=== PATIENT | female | born 1990 | race Caucasian/White ===

== ENCOUNTER 2016-11-21 07:58 | Day surgery (SDC) | payer OTHER ==
--- NOTE | 2016-11-17 09:07 | HP ---
PREOPERATIVE HISTORY AND PHYSICAL: DATE OF SURGERY/ADMISSION: 11/21/16 PROCEDURE: Right wrist carpal tunnel release. HISTORY OF PRESENT ILLNESS: This is a 26-year-old female who complains of numbness and tingling in both of her hands for approximately 2-1/2 months. She believes it involves the whole hand, but could not be sure whether her pinky is included or not. She recently had an EMG nerve conduction study performed on the right, which showed moderate carpal tunnel syndrome. The patient denies injury to either wrist. She gets increased pain with writing and moving her wrists, and relief of symptoms with hot packs. Symptoms are quite persistent and do awaken her at night. She is currently an outpatient for drug rehabilitation. She was recently a resident at [facility] for drug addiction and is currently on Suboxone. She has a history of narcotic drug abuse. The patient is interested in pursuing surgical intervention for her right carpal tunnel syndrome and has consented to proceed. PAST MEDICAL HISTORY: 1. History of substance abuse. 2. Depression/anxiety. PAST SURGICAL HISTORY: x2. CURRENT MEDICATIONS: 1. Meloxicam 15 mg daily. 2. Paxil 40 mg daily. 3. Suboxone 8-2 mg daily. 4. Wellbutrin SR 100 mg daily. ALLERGIES: AMOXICILLIN SODIUM causes hives. FAMILY MEDICAL HISTORY: Significant for diabetes, hypertension, and thyroid cancer. SOCIAL HISTORY: The patient is not currently employed. She is in outpatient drug rehabilitation treatment. She is a smoker, currently smoking less than half a pack a day and has done so since age 12. She denies current illicit drug use. Reports 133 days of sobriety. Denies alcohol use currently. REVIEW OF SYSTEMS: General: Negative for fevers, chills, or night sweats. No known anesthesia problems. HEENT: Negative for headache, lightheadedness, or syncopal episodes. Integumentary: Negative for abrasions, lesions, or open wounds. Cardiothoracic: Negative for hypertension, chest pain, palpitations, or edema. Pulmonary: Negative for shortness of breath with exertion, chronic cough or COPD. GI: Negative for nausea, vomiting, diarrhea, constipation, or GERD. : Negative for nocturia, urinary frequency, urgency, history of UTIs, or kidney problems. Musculoskeletal: Positive for current complaint. Negative for chronic or intermittent back pain or history of fractures. Neurological: Negative for history of seizure, stroke, or epilepsy. Positive for depression/anxiety. Endocrine: Negative for diabetes or thyroid issues. Hematologic: Negative for easy bruising, anemia, excessive bleeding, or history of DVT. Infectious Disease: Negative for history of MRSA, hepatitis C, or HIV. PHYSICAL EXAMINATION GENERAL: Well-developed, well-nourished 26-year-old female, in no acute distress. VITAL SIGNS: Height 5 feet, weight 130 pounds. Blood pressure 102/64, pulse rate 81. HEENT: Normocephalic, atraumatic. Pupils are equal, round, and reactive to light and accommodation. Extraocular movements are intact. Throat is clear. NECK: Supple. No palpable lymph nodes. PULMONARY: Lungs are clear to auscultation bilaterally. No wheezes, rales, or rhonchi. CARDIOTHORACIC: Regular rate and rhythm. S1, S2. No murmurs, rubs or gallops. No edema. ABDOMEN: Positive bowel sounds, soft, and nontender. NEUROLOGICAL: Alert and oriented x3. Cranial nerves II through XII are intact. Sensation is intact to light touch. PERIPHERAL VASCULAR: 2+ radial and ulnar pulses. Negative Julius test. MUSCULOSKELETAL: On exam of bilateral upper extremities, there is no visible atrophy at the thenar eminence nor at the interosseous musculature of bilateral hands. There is no tenderness to palpation at the wrist or at the elbows. She has full range of motion at the elbows, wrists and fingers, slight decrease in strength with thumb abduction, right is worse than left. She has a negative Tinel's sign at the wrist bilaterally as well as at the elbows bilaterally. Negative Phalen's test bilaterally. She has good strength with finger abduction and adduction, and sensation is intact throughout to light touch, both hands. IMAGING STUDIES: EMG nerve conduction study shows electrodiagnostic evidence of moderate carpal tunnel syndrome. IMPRESSION: Right carpal tunnel syndrome. PLAN: The patient is scheduled to undergo a right wrist carpal tunnel release with Dr. Whaley on 11/21/16. She will return to the office 10 to 14 days postop for followup and suture removal. The patient has a history of narcotic drug abuse and is currently being treated with Suboxone. We will have her continue with the Suboxone and we will have her use meloxicam and some acetaminophen for postoperative pain control. SYEDA BAILEY [id number]/[facility] #: [id number] [facility]PT[facility] HOSPITALZaria
[~2016-11-21 07:58] MED LIST: Buffered Lidocaine 0.9% SYRIN* 5 ML/SYR SYRINGE INTRADERM ONE
[2016-11-21] MEDS ORDERED: Propofol* 10 MG/ML 20 ML BTL IV PUSH ONE (08:58)
[2016-11-21] MEDS ORDERED: Lidocaine 2% PF * 5 ML VIAL ONE (08:58)
[2016-11-21] MEDS ORDERED: fentaNYL* 50 MCG/ML 2 ML VIAL (100 MCG VIAL) ONE (08:58)
[2016-11-21] MEDS ORDERED: KETAMINE HCL* 50 MG/ML 10 ML VIAL ONE (09:27)
[2016-11-21] MEDS ORDERED: Midazolam* 1 MG/ML 5 ML VIAL (5 MG) ONE (09:27)
[2016-11-21 11:55] VITALS: BP 109/72
--- NOTE | 2016-11-22 06:32 | OP ---
DATE OF OPERATION: 11/21/16 [facility] DATE OF : 88 SURGEON: Miguelina Whaley MD LEGGER PRESS OPERATOR: SYEDA Oh ANESTHESIOLOGIST: Harry Glez MD ANESTHESIA: Local MAC. PRE-OP DIAGNOSIS: Right carpal tunnel syndrome. POST-OP DIAGNOSIS: Right carpal tunnel syndrome. OPERATIVE PROCEDURE: Right carpal tunnel release. ESTIMATED BLOOD LOSS: Zero. TOURNIQUET TIME: 5 minutes. INDICATION FOR PROCEDURE: Willow is a 26-year-old female with numbness and tingling in the median nerve distribution of her right hand. She presents for right carpal tunnel release. DESCRIPTION OF PROCEDURE: The patient was brought to the operating room, was given a sedation anesthetic and a local infiltration of 10 cc of 1% plain lidocaine in the palm of her right hand. The skin of her right hand and forearm was prepped and draped in the usual sterile fashion. The hand and forearm were exsanguinated and the tourniquet elevated to 250 mmHg. A longitudinal incision was made in the palm in line with the ring finger, dissected through the subcutaneous tissue down to the transverse carpal ligament. The ligament was divided sharply with the knife and then more proximally with scissors. The nerve was dissected free from the surrounding tissue and there was an area of moderate compression at the mid portion of the ligament. The wound was irrigated and the skin edges were reapproximated with 4 -0 nylon suture. The wound was dressed with Xeroform, 4x4, Webril, and an Isauro wrap. The patient tolerated the procedure well and was brought to the recovery room in good condition. [id number]/[facility] #: [id number] MTDD
== END 2016-11-21 11:04 | disposition home or self-care (01) ==
LOC: OREAST 07:58
PROVIDERS: ATTEND Orthopaedic Surgery
DX: G56.01 Carpal tunnel syndrome, right upper limb (principal); F17.210 Nicotine dependence, cigarettes, uncomplicated; F11.21 Opioid dependence, in remission
CPT/HCPCS: J2250; J2704; J3010

== ENCOUNTER 2017-04-22 16:29 | Emergency (ER) | payer OTHER ==
[2017-04-22 17:14] VITALS: BP 136/79
--- NOTE | 2017-04-22 17:24 | UC ---
Skin Complaint HPI - HPI Summary HPI Summary: 26 year old female presents with severe cellulitis on her left arm. - History of Current Complaint Chief Complaint: UCSkin Time Seen by Provider: 04/22/17 17:19 Stated Complaint: LEFT ARM COMPLAINT Hx Obtained From: Patient Hx Last Menstrual Period: IRREGULAR - 4 MONTHS AGO Onset/Duration: Sudden Onset Skin Exposure Onset/Duration: Days Ago Onset Severity: Moderate Current Severity: Moderate - Allergy/Home Medications Allergies/Adverse Reactions: Allergies Allergy/AdvReac Type Severity Reaction Status Date / Time cillins Allergy Severe Hives Uncoded 04/22/17 17:14 mycins Allergy Severe Hives Uncoded 04/22/17 17:14 Home Medications: Home Medications Asenapine Maleate [Saphris] 5 mg SL 04/22/17 [History] Review of Systems Constitutional: Negative Skin: Other - left arm cellulitis Eyes: Negative ENT: Negative Respiratory: Negative Cardiovascular: Negative Gastrointestinal: Negative Genitourinary: Negative Motor: Negative Neurovascular: Negative Musculoskeletal: Negative Neurological: Negative Psychological: Negative All Other Systems Reviewed And Are Negative: Yes PMH/Surg Hx/FS Hx/Imm Hx Previously Healthy: Yes - Surgical History Surgical History: Yes Surgery Procedure, Year, and Place: x2 - Social History Alcohol Use: None Substance Use Type: None Smoking Status (MU): Light Every Day Tobacco Smoker Amount Used/How Often: smoked for 15 years - Immunization History Most Recent Influenza Vaccination: CURRENT FOR Physical Exam Triage Information Reviewed: Yes Vital Signs: Initial Vital Signs Temp 36.6 C 04/22/17 17:07 Pulse 78 04/22/17 17:07 Resp 18 04/22/17 17:07 BP 136/79 04/22/17 17:07 Pulse Ox 100 04/22/17 17:07 Vital Signs Reviewed: Yes Eye Exam: Normal ENT Exam: Normal Dental Exam: Normal Neck exam: Normal Neck: Positive: 1 Respiratory Exam: Normal Cardiovascular Exam: Normal Abdominal Exam: Normal Musculoskeletal Exam: Normal Neurological Exam: Normal Psychological Exam: Normal Skin: Positive: Other - left arm cellulitis Course/Dx - Diagnoses Provider Diagnoses: left arm cellulitis Discharge - Discharge Plan Condition: Stable Disposition: OTHER Discharge Disposition Comment: patient suggested to go to the er for worsening left arm cellulitis Patient Education Materials: Abscess (ED), Arm Pain (ED) Referrals: Carina Perez NP [Primary Care Provider] -
== END 2017-04-22 17:37 ==
LOC: UCCORT 16:29
DX: L03.114 Cellulitis of left upper limb (principal); Z88.1 Allergy status to other antibiotic agents; Z88.0 Allergy status to penicillin; F17.210 Nicotine dependence, cigarettes, uncomplicated
CPT/HCPCS: 99212; G0463

== ENCOUNTER 2018-04-03 02:46 | Emergency (ER) | payer OTHER ==
[2018-04-03] MEDS ORDERED: Nicotine Inhaler* 10 MG AMP INH PRN (02:48)
[2018-04-03 03:47] LABS: ABS Basophils 0.1 10^3/ul (0-0.2); ABS Eosinophils 0.1 10^3/ul (0-0.6); ABS Monocytes 0.8 10^3/ul (0-0.8); ABS Neutrophils 6.4 10^3/ul (1.5-7.7); ABS Nucleated RBC 0 10^3/ul; Eosinophil % 1.2 % (0-6); Hematocrit 40 % (35-47); Hemoglobin 13.1 g/dl (12.0-16.0); Mean Corpuscular HGB Conc 33 g/dl (31-36); Mean Corpuscular Hemoglobin 31 pg (27-31); Mean Corpuscular Volume 95 fL (80-97); Mean Platelet Volume 6.7 fL (7.4-10.4); Nucleated Red Blood Cells % 0.1; Platelet Count 338 10^3/ul (150-450); Red Blood Count 4.21 10^6/ul (4.00-5.40); Red Cell Distribution Width 15 % (10.5-15); White Blood Count 12.6 10^3/ul (3.5-10.8)
[2018-04-03] MEDS ORDERED: Mouth Piece, Nicotine* 1 EACH CARTRIDGE INH ONE (04:00)
[2018-04-03 04:05] LABS: EGFR Non-African American 121.4 (>60)
--- NOTE | 2018-04-03 04:06 | ED ---
Substance Abuse/Use - HPI Summary HPI Summary: This patient is a 27 year old F BIBA to [facility] with a chief complaint of unresponsiveness since earlier this evening. EMS reports that the patient was found cutting herself in a [place] bathroom after she had locked herself inside. 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 The patient admits to using speed and meth. The patient rates the pain 0/10 in severity. Symptoms aggravated by nothing. Symptoms alleviated by nothing. Patient denies taking heroin. Patient is alert only to painful stimuli. - History Of Current Complaint Chief Complaint: EDSubstanceAbuse Stated Complaint: UNRESPONSIVE Time Seen by Provider: 04/03/18 02:58 Hx Obtained From: Patient, EMS Hx Last Menstrual Period: IRREGULAR - 4 MONTHS AGO Onset/Duration of Drug/ETOH Abuse: Hours Ingestion History: Type/Name Of Drug - speed, meth Timing Of Abuse: Intermittent Severity Initially: Moderate Severity Currently: Moderate Character: Lethargic Aggravating Factor(s): Nothing Alleviating Factor(s): Nothing Associated Signs And Symptoms: Hostile, Social Isolation Related Hx: Possible Multi Drug Ingestion - Allergies/Home Medications Allergies/Adverse Reactions: Allergies Allergy/AdvReac Type Severity Reaction Status Date / Time cillins Allergy Severe Hives Uncoded 04/22/17 17:14 mycins Allergy Severe Hives Uncoded 04/22/17 17:14 Home Medications: Home Medications ALPRAZolam [Alprazolam] 1 mg PO TID PRN 04/03/18 [History Confirmed 04/03/18] Buprenorp/Nalox 8-2 MG FILM [Suboxone 8 mg-2 mg Sl Film] 1 film SL BID 04/03/18 [History Confirmed 04/03/18] Methylphenidate TAB* [Ritalin TAB*] 10 mg PO BID 04/03/18 [History Confirmed 08/16] Ropinirole TAB* [Requip TAB*] 0.5 mg PO TID 04/03/18 [History Confirmed 04/03/18 ] Venlafaxine EXT RELEASE CAP* [Effexor Xr CAP*] 75 mg PO DAILY 04/03/18 [History Confirmed 04/03/18] diazePAM [Diazepam] 5 mg PO DAILY 04/03/18 [History Confirmed 04/03/18] PMH/Surg Hx/FS Hx/Imm Hx Cardiovascular History: Reports: Hx Hypertension Respiratory History: Reports: Other Respiratory Problems/Disorders - insomnia Sensory History: Reports: Hx Contacts or Glasses - glasses Denies: Hx Hearing Aid Opthamlomology History: Reports: Hx Contacts or Glasses - glasses Psychiatric History: Reports: Hx Anxiety, Hx Depression - Cancer History Hx Chemotherapy: No - Surgical History Surgery Procedure, Year, and Place: x2 Hx Anesthesia Reactions: No Infectious Disease History: No Infectious Disease History: Denies: History Other Infectious Disease, Traveled Outside the [place] in Last 30 Days - Family History Known Family History: Negative: Seizure Disorder - Social History Alcohol Use: None Substance Use Type: Reports: Other Substance Use Comment - Amount & Last Used: meth, speed and crack Smoking Status (MU): Light Every Day Tobacco Smoker Amount Used/How Often: smoked for 15 years Review of Systems Positive: Fatigue. Negative: Fever Negative: Epistaxis Negative: Cough Negative: Vomiting All Other Systems Reviewed And Are Negative: Yes Physical Exam - Summary Physical Exam Summary: GENERAL: Patient is a well-developed and nourished F who is lying comfortable in the stretcher. Patient is not in any acute respiratory distress. HEAD AND FACE: Normocephalic EYES: PERRLA, EOMI x 2. EARS: Hearing grossly intact. MOUTH: Oropharynx within normal limits. NECK: Supple, trachea is midline, no adenopathy, no JVD, no carotid bruit. CHEST: Symmetric, no tenderness at palpation LUNGS: Clear to auscultation bilaterally. No wheezing or crackles. CVS: Regular rate and rhythm, S1 and S2 present, no murmurs or gallops appreciated. ABDOMEN: Soft, non-tender. Bowel sounds are normal. No abdominal abnormal pulsations. EXTREMITIES: Full ROM in all major joints, no edema, no cyanosis or clubbing. NEURO: Alert only to painful stimuli. No acute neurological deficits. Speech is normal and follows commands. SKIN: Dry and warm Triage Information Reviewed: Yes Vital Signs On Initial Exam: Initial Vitals Pulse Pulse Ox 97 100 04/03/18 02:54 04/03/18 02:54 Vital Signs Reviewed: Yes Diagnostics - Vital Signs Vital Signs Temp Pulse Resp BP Pulse Ox 04/03/18 03:02 98.6 F 82 16 113/71 95 04/03/18 03:00 78 18 97 04/03/18 02:57 78 21 113/71 97 04/03/18 02:54 97 100 - Laboratory Lab Results: Lab Results 04/03/18 Range/Units 03:36 WBC 12.6 H (3.5-10.8) 10^3/ul RBC 4.21 (4.00-5.40) 10^6/ul Hgb 13.1 (12.0-16.0) g/dl Hct 40 (35-47) % MCV 95 (80-97) fL MCH 31 (27-31) pg MCHC 33 (31-36) g/dl RDW 15 (10.5-15) % Plt Count 338 (150-450) 10^3/ul MPV 6.7 L (7.4-10.4) fL Neut % (Auto) 51.4 (38-83) % Lymph % (Auto) 40.0 (25-47) % [place] % (Auto) 6.7 (0-7) % Eos % (Auto) 1.2 (0-6) % Baso % (Auto) 0.7 (0-2) % Absolute Neuts (auto) 6.4 (1.5-7.7) 10^3/ul Absolute Lymphs (auto) 5.0 H (1.0-4.8) 10^3/ul Absolute Monos (auto) 0.8 (0-0.8) 10^3/ul Absolute Eos (auto) 0.1 (0-0.6) 10^3/ul Absolute Basos (auto) 0.1 (0-0.2) 10^3/ul Absolute Nucleated RBC 0 10^3/ul Nucleated RBC % 0.1 Result Diagrams: 04/03/18 03:36 04/03/18 03:36 Lab Statement: Any lab studies that have been ordered have been reviewed, and results considered in the medical decision making process. Course/Dx - Course Course Of Treatment: This patient is a 27 year old F BIBA to [facility] with a chief complaint of unresponsiveness since earlier this evening. 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 The patient admits to using speed and meth. Patient is alert only to painful stimuli.UA tested positive for amphetamines, benzodiazepines, cocaine, cannabinoids, and serum alcohol of 100. Patient will be signed out to Dr. Triana from Dr. Begum upon physician shift change pending MHE. - Diagnoses Provider Diagnoses: Polysubstance abuse Discharge - Sign-Out/Discharge Documenting (check all that apply): Sign-Out Patient - sign out from Dr. Triana to Dr. Begum pending MHE Signing out patient TO: Cruz Triana Receiving patient FROM: Darrel Begum - Discharge Plan Condition: Improved Disposition: HOME Patient Education Materials: Polysubstance Abuse (ED) Referrals: Tramaine Nielsen [Primary Care Provider] - Additional Instructions: Do not use drugs and never drink alcohol to excess. Follow-up with [facility] who you have seen before. Call them today. Return if worse, suicidal thoughts, depression, worse or other concerns as discussed. Do not drive. - Billing Disposition and Condition Condition: IMPROVED Disposition: Home - Attestation Statements Document Initiated by Scribe: Yes Documenting Scribe: Florence Telles Provider For Whom Scribe is Documenting (Include Credential): Darrel Begum MD Scribe Attestation: Florence Kimball scribed for Darrel Begum MD on 04/04/18 at 0342. Scribe Documentation Reviewed: Yes Provider Attestation: The documentation as recorded by the dreadibFlorence engel accurately reflects the service I personally performed and the decisions made by Nakita rahman MD
[2018-04-03 04:28] LABS: Urine Appearance Clear; Urine Blood 1+ (Negative); Urine Color Straw; Urine Ketones Negative (Negative); Urine Protein Negative (Negative); Urine Red Blood Cell Trace(0-2/hpf) (Absent); Urine Specific Gravity 1.004 (1.010-1.030); Urine Urobilinogen Negative (Negative); Urine White Blood Cell Trace(0-5/hpf) (Absent)
--- NOTE | 2018-04-03 07:15 | ED ---
Progress - Progress Note Progress Note: Patient was signed out from Dr. Begum upon shift change pending MHE. Re-Evaluation - Re-Evaluation First Eval Re-Evaluation Time: 08:40 Change: Improved Comment: Patient is now clinically sober. She states the scratches on the wrist are from her cat not due to self injury. MHE not necessary. Patient states she goes to [facility] Course/Dx - Course Course Of Treatment: This patient is a 27 year old F BIBA to [facility] with a chief complaint of unresponsiveness since earlier this evening. 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 The patient admits to using speed and meth. Patient is alert only to painful stimuli.UA tested positive for amphetamines, benzodiazepines, cocaine, cannabinoids, and serum alcohol of 100. Patient sobered and now demonstrates functional capacity in the ER to consist of normal cognition/decision making, clear speech and steady gait. She reports ongoing substance abuse for which she is not requesting any sort of outpatient referral. She is not interested in rehabilitation at this time. There is areas that the previous team had worried about self injury however there are Scratches on her wrist which she confirms as such. She reports that she is not a threat to hurt herself or other people and that she like to go home. She was cleared and will discharged with outpatient follow-up. - Diagnoses Provider Diagnoses: Polysubstance abuse Discharge - Sign-Out/Discharge Documenting (check all that apply): Patient Departure, Receiving Sign-Out Receiving patient FROM: Darrel Begum - Upon shift change pending MHE - Discharge Plan Condition: Improved Disposition: HOME Patient Education Materials: Polysubstance Abuse (ED) Referrals: Tramaine Nielsen [Primary Care Provider] - Additional Instructions: Do not use drugs and never drink alcohol to excess. Follow-up with [facility] who you have seen before. Call them today. Return if worse, suicidal thoughts, depression, worse or other concerns as discussed. Do not drive. - Billing Disposition and Condition Condition: IMPROVED Disposition: Home - Attestation Statements Document Initiated by Scribe: Yes Documenting Scribe: Blank Cruz Provider For Whom Scribe is Documenting (Include Credential): Dr. Cruz Triana MD Scribe Attestation: I, Blank Cruz, scribed for Dr. Cruz Triana MD on 04/03/18 at 1211. Scribe Documentation Reviewed: Yes Provider Attestation: The documentation as recorded by the scribe, Blank Cruz accurately reflects the service I personally performed and the decisions made by me, Dr. Cruz Triana MD
[2018-04-03 09:05] VITALS: BP 156/78
== END 2018-04-03 09:03 | disposition home or self-care (01) ==
LOC: ED 02:46
DX: K05.10 Chronic gingivitis, plaque induced (principal); F17.210 Nicotine dependence, cigarettes, uncomplicated
CPT/HCPCS: 36415; 80053; 80307; 80320; 80329; 81003; 81015; 84443; 84702; 85025; 87077; 87086; 87186; 99282; G0480

== ENCOUNTER → 2018-09-16 16:51 | Emergency (ER) | payer OTHER ==
[~2018-09-16 16:51] MED LIST changes: +ALPRAZolam TAB* 0.5 MG PO ONE; -Buffered Lidocaine 0.9% SYRIN* 5 ML/SYR SYRINGE INTRADERM ONE; +NS 0.9% 1000 ML** 1,000 ML IV ONE; +Ondansetron INJ* 2 MG/ML VIAL IV ONE
--- NOTE | 2018-09-16 17:05 | ED ---
Substance Abuse/Use - HPI Summary HPI Summary: A 27 y/o female brought in by [facility] ambulance presents to [facility] with a chief complaint of drinking clear laundry detergent. EMS found her with vomit on the floor. She reportedly drank about 3 ounces of clear laundry detergent, thinking that it was water. The patient denies any drug or alcohol use. - History Of Current Complaint Stated Complaint: POISON/INGESTED SOAP PER EMS Hx Obtained From: Patient, EMS Hx Last Menstrual Period: IRREGULAR - 4 MONTHS AGO Onset/Duration of Drug/ETOH Abuse: Minutes Ingestion History: Type/Name Of Drug - clear liquid laundry detergent, Amount Ingested - 3 oz, Approximate Time Of Ingestion - [employer]GRAM [employer]NAG[employer] Overdose Characteristics: Oral Timing Of Abuse: Intermittent - 1 episode Severity Initially: Mild Severity Currently: Mild Character: Other - retching Aggravating Factor(s): Nothing Alleviating Factor(s): Nothing Associated Signs And Symptoms: Nausea, Vomiting - Allergies/Home Medications Allergies/Adverse Reactions: Allergies Allergy/AdvReac Type Severity Reaction Status Date / Time cillins Allergy Severe Hives Uncoded 04/22/17 17:14 mycins Allergy Severe Hives Uncoded 04/22/17 17:14 PMH/Surg Hx/FS Hx/Imm Hx Cardiovascular History: Reports: Hx Hypertension Respiratory History: Reports: Other Respiratory Problems/Disorders - insomnia Sensory History: Reports: Hx Contacts or Glasses - glasses Denies: Hx Hearing Aid Opthamlomology History: Reports: Hx Contacts or Glasses - glasses Psychiatric History: Reports: Hx Anxiety, Hx Depression - Cancer History Hx Chemotherapy: No - Surgical History Surgery Procedure, Year, and Place: x2 Hx Anesthesia Reactions: No Infectious Disease History: Denies: History Other Infectious Disease - Family History Known Family History: Negative: Seizure Disorder - Social History Alcohol Use: None Substance Use Type: Reports: Other Substance Use Comment - Amount & Last Used: meth, speed and crack Smoking Status (MU): Light Every Day Tobacco Smoker Amount Used/How Often: smoked for 15 years Review of Systems Negative: Fever Positive: Vomiting, Nausea, Other - positive: ingesting clear liquid laundry detergent All Other Systems Reviewed And Are Negative: Yes Physical Exam - Summary Physical Exam Summary: Appearance: The patient is well-nourished in no acute distress and in no acute pain. Skin: The skin is warm and dry and skin color reflects adequate perfusion. HEENT: The head is normocephalic and atraumatic. The pupils are equal and reactive. The conjunctivae are clear and without drainage. Nares are patent and without drainage. Mouth reveals moist mucous membranes and the throat is without erythema and exudate. The external ears are intact. The ear canals are patent and without drainage. The tympanic membranes are intact. Neck: The neck is supple with full range of motion and non-tender. There are no carotid bruits. There is no neck vein distension. Respiratory: Chest is non-tender. Lungs are clear to auscultation and breath sounds are symmetrical and equal. Cardiovascular: Heart is regular rate and rhythm. There is no murmur or rub auscultated. There is no peripheral edema and pulses are symmetrical and equal. Abdomen: Patient is retching. The abdomen is soft and non-tender. There are normal bowel sounds heard in all four quadrants and there is no organomegaly palpated. Musculoskeletal: There is no back tenderness noted. Extremities are non-tender with full range of motion. There is good capillary refill. There is no peripheral edema or calf tenderness elicited. Neurological: Patient is awake and alert and answering questions appropriately. The patient has symmetrical motor strength in all four extremities. Cranial nerves are grossly intact. Deep tendon reflexes are symmetrical and equal in all four extremities. Psychiatric: The patient has an appropriate affect and does not exhibit any anxiety or depression. Triage Information Reviewed: Yes Vital Signs Reviewed: Yes Diagnostics - Laboratory Result Diagrams: 09/16/18 17:52 09/16/18 17:52 Lab Statement: Any lab studies that have been ordered have been reviewed, and results considered in the medical decision making process. - EKG 17:32 Cardiac Rate: NL - 71 bpm EKG Rhythm: Sinus Rhythm Summary of EKG Findings: Normal sinus rhythm at 71 bpm, normal ST, no ectopy, no STEMI Course/Dx - Course Course Of Treatment: Ms. Peterson reportedly drank some laundry detergent. She is being treated symptomatically while labs are pending and I expect she will go home after she improves. - Diagnoses Provider Diagnoses: Accidental overdose Discharge - Sign-Out/Discharge Documenting (check all that apply): Sign-Out Patient Signing out patient TO: Abilio Allen Patient Received Moderate/Deep Sedation with Procedure: No - Discharge Plan Condition: Stable Referrals: Karn RPA-Tramaine Palafox [Primary Care Provider] - - Billing Disposition and Condition Condition: STABLE - Attestation Statements Document Initiated by Wilfredoibtoro: Yes Documenting Scribe: Fausto Moore Provider For Whom Ally is Documenting (Include Credential): Kobi Madrid MD Scribe Attestation: I, Fausto Moore, scribed for Kobi Madrid MD on 09/16/18 at 1903. Scribe Documentation Reviewed: Yes Provider Attestation: The documentation as recorded by the Fausto miller accurately reflects the service I personally performed and the decisions made by me, Kobi Madrid MD Status of Scribe Document: Viewed
[2018-09-16 18:08] LABS: ABS Basophils 0.1 10^3/ul (0-0.2); ABS Eosinophils 0.1 10^3/ul (0-0.6); ABS Lymphocytes 3.7 10^3/ul (1.0-4.8); ABS Monocytes 1.3 10^3/ul (0-0.8); ABS Neutrophils 9.4 10^3/ul (1.5-7.7); ABS Nucleated RBC 0 10^3/ul; Eosinophil % 0.8 %; Hematocrit 44 % (33-41); Hemoglobin 14.2 g/dL (12.0-16.0); Lymphocyte % 25.5 %; Mean Corpuscular HGB Conc 33 g/dL (31-36); Mean Corpuscular Hemoglobin 29 pg (27-31); Mean Corpuscular Volume 90 fL (80-97); Mean Platelet Volume 6.8 fL (7.4-10.4); Nucleated Red Blood Cells % 0; Platelet Count 492 10^3/uL (150-450); Red Blood Count 4.86 10^6 /uL (3.70-4.87); Red Cell Distribution Width 15 % (10.5-15); White Blood Count 14.6 10^3/uL (3.5-10.8)
[2018-09-16 18:23] LABS: ALT 27 U/L (7-52); AST 35 U/L (13-39); Albumin 4.8 g/dL (3.2-5.2); Albumin/Globulin Ratio 1.4 (1-3); Alkaline Phosphatase 63 U/L (34-104); Anion Gap 8 mmol/L (2-11); BUN/Creatinine Ratio 20.3 (8-20); Blood Urea Nitrogen 14 mg/dL (6-24); CO2 Carbon Dioxide 25 mmol/L (22-32); Calcium 9.9 mg/dL (8.6-10.3); Chloride 105 mmol/L (101-111); EGFR African American 122.6 (>60); EGFR Non-African American 101.3 (>60); Globulin 3.4 g/dL (2-4); Glucose 101 mg/dL (70-100); Potassium 3.8 mmol/L (3.5-5.0); Sodium 138 mmol/L (135-145); Total Protein 8.2 g/dL (6.4-8.9)
[2018-09-16 18:27] LABS: Urine Appearance Turbid; Urine Bilirubin Negative (Negative); Urine Blood Negative (Negative); Urine Color Yellow; Urine Glucose Negative (Negative); Urine Ketones Negative (Negative); Urine Nitrite Negative (Negative); Urine Protein Negative (Negative); Urine Specific Gravity 1.012 (1.010-1.030); Urine Urobilinogen Negative (Negative)
[2018-09-16 18:29] LABS: HCG Pregnancy < 0.60 mIU/mL
[2018-09-16 19:01] LABS: Urine Benzodiazepine Screen Presumptive Positive (None Detect); Urine Opiates Screen None Detected (None Detect)
--- NOTE | 2018-09-16 19:05 | ED ---
Progress - Progress Note Progress Note: This patient was signed out from Dr. Madrid to Dr. Allen upon physician shift change pending EtOH. Course/Dx - Course Course Of Treatment: This patient was signed out from Dr. Madrid to Dr. Allen upon physician shift change pending EtOH. Labs and UA obtained. Patient says she does not want to be here anymore and her boyfriend will drive her home. Patient will be discharged home with follow up from PCP. Dx anxiety and substance abuse. Patient is agreeable with this plan. - Diagnoses Provider Diagnoses: Anxiety, Substance abuse Discharge - Sign-Out/Discharge Documenting (check all that apply): Patient Departure - discharge home, Receiving Sign-Out Receiving patient FROM: Kobi Madrid Patient Received Moderate/Deep Sedation with Procedure: No - Discharge Plan Condition: Stable Disposition: HOME Patient Education Materials: Anxiety (ED), Polysubstance Abuse (ED) Referrals: Isaiah HENSON,Tramaine Blandon [Primary Care Provider] - 2 Days Additional Instructions: Follow up with your primary care physician in 1-2 days. Return to the emergency department with any new or worsening symptoms. - Attestation Statements Document Initiated by Scribe: Yes Documenting Scribe: Florence Telles Provider For Whom Wilfredoibtoro is Documenting (Include Credential): Abilio Allen MD Scribe Attestation: Florence Kimball, scribed for Abilio Allen MD on 09/16/18 at 1947. Status of Scribe Document: Ready
[2018-09-16 19:21] LABS: Acetaminophen < 15 mcg/mL; Alcohol < 10 mg/dL (<10); Salicylate < 2.50 mg/dL (<30)
[2018-09-16 19:49] VITALS: BP 149/103
== END | disposition home or self-care (01) ==
LOC: ED 16:51
DX: T55.1X1A Toxic effect of detergents, accidental (unintentional), initial encounter (principal); R11.10 Vomiting, unspecified; F41.9 Anxiety disorder, unspecified; F19.10 Other psychoactive substance abuse, uncomplicated; I10 Essential (primary) hypertension; G47.00 Insomnia, unspecified; F17.210 Nicotine dependence, cigarettes, uncomplicated; Z88.3 Allergy status to other anti-infective agents
CPT/HCPCS: 36415; 80053; 80307; 80320; 80329; 81003; 83605; 84702; 85025; 93005; 96361; 96374; 99283; A9270-GY; G0480; J2405

== ENCOUNTER 2018-09-28 16:05 | Emergency (ER) | payer OTHER ==
[2018-09-28 16:42] LABS: Urine Appearance Cloudy; Urine Bilirubin Negative (Negative); Urine Blood Negative (Negative); Urine Color Yellow; Urine Glucose Negative (Negative); Urine Ketones Negative (Negative); Urine Nitrite Negative (Negative); Urine Protein Negative (Negative); Urine Specific Gravity 1.016 (1.010-1.030); Urine Urobilinogen Negative (Negative)
[2018-09-28 16:43] LABS: ABS Basophils 0.1 10^3/ul (0-0.2); ABS Eosinophils 0.1 10^3/ul (0-0.6); ABS Lymphocytes 2.3 10^3/ul (1.0-4.8); ABS Monocytes 0.5 10^3/ul (0-0.8); ABS Neutrophils 4.3 10^3/ul (1.5-7.7); ABS Nucleated RBC 0 10^3/ul; Eosinophil % 0.9 %; Hematocrit 42 % (33-41); Hemoglobin 13.9 g/dL (12.0-16.0); Lymphocyte % 31.6 %; Mean Corpuscular HGB Conc 33 g/dL (31-36); Mean Corpuscular Hemoglobin 30 pg (27-31); Mean Corpuscular Volume 91 fL (80-97); Mean Platelet Volume 6.5 fL (7.4-10.4); Nucleated Red Blood Cells % 0; Platelet Count 371 10^3/uL (150-450); Red Cell Distribution Width 15 % (10.5-15); White Blood Count 7.3 10^3/uL (3.5-10.8)
[2018-09-28 16:55] LABS: Urine Benzodiazepine Screen None Detected (None Detect); Urine Opiates Screen None Detected (None Detect)
[2018-09-28 17:00] LABS: ALT 16 U/L (7-52); AST 15 U/L (13-39); Albumin 4.4 g/dL (3.2-5.2); Albumin/Globulin Ratio 1.5 (1-3); Alkaline Phosphatase 57 U/L (34-104); Anion Gap 3 mmol/L (2-11); BUN/Creatinine Ratio 13.3 (8-20); Blood Urea Nitrogen 8 mg/dL (6-24); CO2 Carbon Dioxide 29 mmol/L (22-32); Calcium 9.3 mg/dL (8.6-10.3); Chloride 105 mmol/L (101-111); Globulin 2.9 g/dL (2-4); Glucose 87 mg/dL (70-100); Potassium 4.6 mmol/L (3.5-5.0); Sodium 137 mmol/L (135-145); Total Protein 7.3 g/dL (6.4-8.9)
--- NOTE | 2018-09-28 17:02 | ED ---
Psychiatric Complaint - HPI Summary HPI Summary: This patient is a 27 year old F presenting to ED with a chief complaint of feeling unsafe. Per triage, Patient states she is not feeling safe and wants a MHE. Patient uses meth, last used yesterday. Denies SI/HI. Patient is requesting rehab. States she has been feeling depressed over the last 6 months. The patient rates the pain 0/10 in severity. Patient last used meth, ecstasy, and marijuana yesterday. She requests her depression medications be updated. Patient states she doesnt care if she dies. PMHx of HTN, insomnia, anxiety, and depression. She denies family history of seizure disorder. PSHx of c- section x2. Patient uses meth, weed, and ecstasy, is a light tobacco smoker daily, but does not drink alcohol. - History Of Current Complaint Chief Complaint: EDMentalHealth Time Seen by Provider: 09/28/18 16:28 Hx Obtained From: Patient Hx Last Menstrual Period: IRREGULAR - 4 MONTHS AGO Onset/Duration: Lasting Weeks - 6 months, Still Present Timing: Constant Severity Currently: None Character: Depressed, Fearful - Feeling unsafe Aggravating Factor(s): Drug Use - Meth, ecstasy, marijuana Alleviating Factor(s): Nothing Related History: Positive For: Prior Psychiatric Issues Has Suicidal: Denies: Thoughts Has Homicidal: Denies: Thoughts Ingestion History: Type/Name Of Drug - Ecstacy, marijuana, meth, Approximate Time Of Ingestion - Yesterday - Allergies/Home Medications Allergies/Adverse Reactions: Allergies Allergy/AdvReac Type Severity Reaction Status Date / Time cillins Allergy Severe Hives Uncoded 04/22/17 17:14 mycins Allergy Severe Hives Uncoded 04/22/17 17:14 Home Medications: Home Medications cloNIDine HCl 1 tab PO DAILY 09/28/18 [History Confirmed 09/28/18] PMH/Surg Hx/FS Hx/Imm Hx Cardiovascular History: Reports: Hx Hypertension Respiratory History: Reports: Other Respiratory Problems/Disorders - insomnia Sensory History: Reports: Hx Contacts or Glasses - glasses Denies: Hx Hearing Aid Opthamlomology History: Reports: Hx Contacts or Glasses - glasses Psychiatric History: Reports: Hx Anxiety, Hx Depression - Cancer History Hx Chemotherapy: No - Surgical History Surgery Procedure, Year, and Place: x2 Hx Anesthesia Reactions: No Infectious Disease History: No Infectious Disease History: Denies: History Other Infectious Disease, Traveled Outside the [place] in Last 30 Days - Family History Known Family History: Negative: Seizure Disorder - Social History Alcohol Use: None Substance Use Type: Reports: Marijuana, Other - Meth, ecstacy Substance Use Comment - Amount & Last Used: meth, speed and crack Smoking Status (MU): Light Every Day Tobacco Smoker Amount Used/How Often: smoked for 15 years Review of Systems Negative: Fever Psychological: Other - Feeling unsafe Positive: Depressed All Other Systems Reviewed And Are Negative: Yes Physical Exam - Summary Physical Exam Summary: VITAL SIGNS: Reviewed. GENERAL: Patient is a well-developed and nourished female who is lying comfortable in the stretcher. Patient is not in any acute respiratory distress. HEAD AND FACE: No signs of trauma. No ecchymosis, hematomas or skull depressions. No sinus tenderness. EYES: PERRLA, EOMI x 2, No injected conjunctiva, no nystagmus. EARS: Hearing grossly intact. Ear canals and tympanic membranes are within normal limits. MOUTH: Oropharynx within normal limits. NECK: Supple, trachea is midline, no adenopathy, no JVD, no carotid bruit, no c- spine tenderness, neck with full ROM. CHEST: Symmetric, no tenderness at palpation LUNGS: Clear to auscultation bilaterally. No wheezing or crackles. CVS: Regular rate and rhythm, S1 and S2 present, no murmurs or gallops appreciated. ABDOMEN: Soft, non-tender. No signs of distention. No rebound no guarding, and no masses palpated. Bowel sounds are normal. EXTREMITIES: FROM in all major joints, no edema, no cyanosis or clubbing. NEURO: Alert and oriented x 3. No acute neurological deficits. Speech is normal and follows commands. SKIN: Dry and warm PSYCH: Depressed, quiet, and denies any suicidal thoughts or plan. No homicidal thoughts or plan. No signs of psychosis or pressure speech. No tangential speech. Triage Information Reviewed: Yes Vital Signs On Initial Exam: Initial Vitals Temp Pulse Resp BP Pulse Ox 98.9 F 117 18 131/87 100 09/28/18 16:06 09/28/18 16:06 09/28/18 16:06 09/28/18 16:06 09/28/18 16:06 Vital Signs Reviewed: Yes Diagnostics - Vital Signs Vital Signs Temp Pulse Resp BP Pulse Ox 04/30/19 16:06 98.9 F 117 18 131/87 100 - Laboratory Lab Results: Lab Results 09/28/18 09/28/18 09/28/18 Range/Units 16:24 16:24 16:36 WBC 7.3 (3.5-10.8) 10^3/uL RBC 4.60 (3.70-4.87) 10^6 /uL Hgb 13.9 (12.0-16.0) g/dL Hct 42 H (33-41) % MCV 91 (80-97) fL MCH 30 (27-31) pg MCHC 33 (31-36) g/dL RDW 15 (10.5-15) % Plt Count 371 (150-450) 10^3/uL MPV 6.5 L (7.4-10.4) fL Neut % (Auto) 58.8 % Lymph % (Auto) 31.6 % [place] % (Auto) 7.4 % Eos % (Auto) 0.9 % Baso % (Auto) 1.3 % Absolute Neuts (auto) 4.3 (1.5-7.7) 10^3/ul Absolute Lymphs (auto) 2.3 (1.0-4.8) 10^3/ul Absolute Monos (auto) 0.5 (0-0.8) 10^3/ul Absolute Eos (auto) 0.1 (0-0.6) 10^3/ul Absolute Basos (auto) 0.1 (0-0.2) 10^3/ul Absolute Nucleated RBC 0 10^3/ul Nucleated RBC % 0 Urine Color Yellow Urine Appearance Cloudy Urine pH 8.0 (5-9) Ur Specific [place] 1.016 (1.010-1.030) Urine Protein Negative (Negative) Urine Ketones Negative (Negative) Urine Blood Negative (Negative) Urine Nitrate Negative (Negative) Urine Bilirubin Negative (Negative) Urine Urobilinogen Negative (Negative) Ur Leukocyte Esterase Negative (Negative) Urine Glucose Negative (Negative) Urine Opiates Screen None detected (None Detect) Ur Barbiturates Screen None detected (None Detect) Ur Phencyclidine Scrn None detected (None Detect) Ur Amphetamines Screen Presumptive positive A (None Detect) U Benzodiazepines Scrn None detected (None Detect) Urine Cocaine Screen None detected (None Detect) U Cannabinoids Screen Presumptive positive A (None Detect) Result Diagrams: 09/28/18 16:36 09/28/18 16:36 Lab Statement: Any lab studies that have been ordered have been reviewed, and results considered in the medical decision making process. Re-Evaluation - Re-Evaluation First Eval Re-Evaluation Time: 17:47 Comment: Patient is medically cleared for MHE. Course/Dx - Course Assessment/Plan: This patient is a 27 year old F presenting to ED with a chief complaint of feeling unsafe. Per triage, Patient states she is not feeling safe and wants a MHE. Patient uses meth, last used yesterday. Denies SI/HI. Patient is requesting rehab. States she has been feeling depressed over the last 6 months.. Blood work w/o a significant abnormality. She is medically cleared. She is awaiting for a MHE. Patient is hemodynamically stable and A+O x 3. Patient will be signed out to Dr. Hill at shift change. - Differential Dx/Clinical Impression Differential Diagnosis/HQI/PQRI: Positive: Anxiety, Depression Provider Diagnosis: Depression Discharge - Sign-Out/Discharge Documenting (check all that apply): Sign-Out Patient Signing out patient TO: Kobi Hill - Discharge Plan Referrals: Isaiah HENSON,Tramaine Blandon [Primary Care Provider] - - Attestation Statements Document Initiated by Scribe: Yes Documenting Scribe: Yoshi Tucker Provider For Whom Wilfredoibe is Documenting (Include Credential): Jaquan Alves MD Scribe Attestation: I, Yoshi Brownlee and Prince Tucker, scribed for Jaquan Alves MD on 09/28/18 at 2154. Status of Scribe Document: Ready
[2018-09-28 17:05] LABS: Acetaminophen < 15 mcg/mL; Alcohol < 10 mg/dL (<10); Salicylate < 2.50 mg/dL (<30)
[2018-09-28 17:20] LABS: TSH (Thyroid Stimulating Horm) 0.34 mcIU/mL (0.34-5.60)
[2018-09-28] MEDS ORDERED: Nicotine GUM* (NF) 2 MG GUM PO PRN (18:35)
[2018-09-28] MEDS ORDERED: Nicotine PATCH 21 MG/24 HR* PATCH TRANSDERM ONE (19:49)
[2018-09-28] MEDS ORDERED: Ibuprofen TAB* 600 MG PO ONE (19:49)
--- NOTE | 2018-09-28 23:17 | ED ---
Progress - Progress Note Progress Note: This patient was signed out from Dr. Alves to Dr. Hill at 22:00 09/28/18 pending MHE. Per mental health event planning manager, Dr. Bass has cleared the patient for DC. Dx: depression. Re-Evaluation - Re-Evaluation First Eval Re-Evaluation Time: 17:47 Comment: Patient is medically cleared for MHE. Course/Dx - Course Course Of Treatment: This patient was signed out from Dr. Alves to Dr. Hill at 22:00 09/28/18 pending MHE. Per mental health event planning manager, Dr. Bass has cleared the patient for DC. Dx: depression. - Diagnoses Provider Diagnoses: Depression - Provider Notifications Discussed Care Of Patient With: Ana Bass Time Discussed With Above Provider: 02:20 Instructed by Provider To: Other - Per mental health event planning manager, Dr. Bass has cleared the patient for DC. Dx: depression. Discharge - Sign-Out/Discharge Documenting (check all that apply): Patient Departure - DC, Receiving Sign-Out Receiving patient FROM: Jaquan Alves Patient Received Moderate/Deep Sedation with Procedure: No - Discharge Plan Condition: Stable Disposition: HOME Patient Education Materials: Depression (ED), Help Prevent Suicide (ED), Polysubstance Abuse (ED) Referrals: Tramaine Nielsen [Primary Care Provider] - - Billing Disposition and Condition Condition: STABLE Disposition: Home - Attestation Statements Document Initiated by Austine: Yes Documenting Scribe: Fausto Moore Provider For Whom Ally is Documenting (Include Credential): Kobi Hill MD Scribe Attestation: Fausto Kimball, scribed for Kobi Hill MD on 10/02/18 at 0542. Scribe Documentation Reviewed: Yes Provider Attestation: The documentation as recorded by the Fausto miller accurately reflects the service I personally performed and the decisions made by me, Kobi Hill MD Status of Scribe Document: Viewed
[2018-09-29 03:08] VITALS: BP 109/72
== END 2018-09-29 03:04 | disposition home or self-care (01) ==
LOC: ED 16:05
DX: F32.9 Major depressive disorder, single episode, unspecified (principal); I10 Essential (primary) hypertension; G47.00 Insomnia, unspecified; F41.9 Anxiety disorder, unspecified; Z88.1 Allergy status to other antibiotic agents; Z88.0 Allergy status to penicillin; F17.200 Nicotine dependence, unspecified, uncomplicated
CPT/HCPCS: 36415; 80053; 80307; 80320; 80329; 81003; 84443; 85025; 86703; 99284; A9270-GY; G0480

== ENCOUNTER 2018-11-03 21:14 | Emergency (ER) | payer OTHER ==
[2018-11-03 22:53] LABS: Hematocrit 39 % (35-47); Hemoglobin 12.6 g/dL (12.0-16.0); Mean Corpuscular HGB Conc 33 g/dL (31-36); Mean Corpuscular Hemoglobin 30 pg (27-31); Mean Corpuscular Volume 91 fL (80-97); Platelet Count 269 10^3/uL (150-450); Red Blood Count 4.27 10^6 /uL (3.70-4.87); Red Cell Distribution Width 16 % (10.5-15); White Blood Count 14.4 10^3/uL (3.5-10.8)
[2018-11-03 23:21] LABS: ABS Basophils 0.1 10^3/ul (0-0.2); ABS Eosinophils 0.2 10^3/ul (0-0.6); ABS Lymphocytes 6.1 10^3/ul (1.0-4.8); ABS Monocytes 1.2 10^3/ul (0-0.8); ABS Neutrophils 6.8 10^3/ul (1.5-7.7); Eosinophil % 1.3 %; Lymphocyte % 42.6 %; Nucleated Red Blood Cells % 0.2
[2018-11-03] MEDS ORDERED: Sulfamethox/Trimethoprim DS 800/160* TAB PO ONE (23:27)
[2018-11-03 23:28] LABS: ALT 15 U/L (7-52); AST 14 U/L (13-39); Albumin 4.2 g/dL (3.2-5.2); Albumin/Globulin Ratio 1.3 (1-3); Alkaline Phosphatase 62 U/L (34-104); Anion Gap 6 mmol/L (2-11); BUN/Creatinine Ratio 23.2 (8-20); Blood Urea Nitrogen 16 mg/dL (6-24); C Reactive Protein 1.61 mg/L (<8.01); CO2 Carbon Dioxide 31 mmol/L (22-32); Calcium 9.8 mg/dL (8.6-10.3); Chloride 104 mmol/L (101-111); EGFR African American 121.7 (>60); EGFR Non-African American 100.6 (>60); Globulin 3.2 g/dL (2-4); Glucose 100 mg/dL (70-100); Sodium 141 mmol/L (135-145); Total Protein 7.4 g/dL (6.4-8.9)
--- NOTE | 2018-11-03 23:30 | ED ---
Syncope/Near Syncope - HPI Summary HPI Summary: Patient complains of redness and swelling to right medial thigh, and 3 episodes of syncope over the past week. Episodes of syncope unwitnessed. Patient states she just passes out randomly and then wakes up. Denies syncope with exertion, change in position, exiting shower. Patient states she hydrates normally. Denies fever, cough, sore throat, CP, SOB, N/V/D, abdominal pain, change in urine, change in BM. Medical history is IV drug abuse. Denies prior cardiac history or valvular disease. - History Of Current Complaint Chief Complaint: EDRashSkinAbscess Time Seen by Provider: 11/03/18 22:37 Hx Obtained From: Patient Onset/Duration: Gradual Onset, Lasting Days Timing: Intermittent Episode Lasting Context: Unwitnessed Activity At Onset: Unknown Associated Head Trauma: No Aggravating Factor(s): Nothing Alleviating Factor(s): Nothing Associated Signs And Symptoms: Negative - Allergies/Home Medications Allergies/Adverse Reactions: Allergies Allergy/AdvReac Type Severity Reaction Status Date / Time cillins Allergy Severe Hives Uncoded 04/22/17 17:14 mycins Allergy Severe Hives Uncoded 04/22/17 17:14 PMH/Surg Hx/FS Hx/Imm Hx Endocrine/Hematology History: Denies: Hx Anticoagulant Therapy Cardiovascular History: Reports: Hx Hypertension Respiratory History: Reports: Other Respiratory Problems/Disorders - insomnia History: Denies: Hx Dialysis Sensory History: Reports: Hx Contacts or Glasses - glasses Denies: Hx Hearing Aid Opthamlomology History: Reports: Hx Contacts or Glasses - glasses EENT History: Denies: Hx Deafness Neurological History: Denies: Hx Dementia Psychiatric History: Reports: Hx Anxiety, Hx Depression, Hx of Violent Episodes Against Others Comment Only: Hx Eating Disorder - used to, maybe still have anorexia - Cancer History Hx Chemotherapy: No - Surgical History Surgery Procedure, Year, and Place: x2 Hx Anesthesia Reactions: No - Immunization History Immunizations Up to Date: Unable to Obtain/Confirm Infectious Disease History: No Infectious Disease History: Denies: History Other Infectious Disease, Traveled Outside the [place] in Last 30 Days - Family History Known Family History: Negative: Seizure Disorder - Social History Alcohol Use: None Substance Use Type: Reports: Cocaine, Marijuana, Sedatives, Other Substance Use Comment - Amount & Last Used: meth, speed and crack Smoking Status (MU): Light Every Day Tobacco Smoker Amount Used/How Often: smoked for 15 years Review of Systems Constitutional: Negative Eyes: Negative ENT: Negative Cardiovascular: Negative Respiratory: Negative Gastrointestinal: Negative Genitourinary: Negative Musculoskeletal: Negative Skin: Other Positive: Syncope Psychological: Normal All Other Systems Reviewed And Are Negative: Yes Physical Exam - Summary Physical Exam Summary: Small 2 cm x 2 cm apical abscess to medial right thigh which is very fluctuant. Lung sounds clear to auscultation bilaterally. RRR. Abdomen soft nontender. No peripheral edema. Patient alert and oriented, responds coherently and appropriately. Triage Information Reviewed: Yes Vital Signs On Initial Exam: Initial Vitals Temp Pulse Resp BP Pulse Ox 97.5 F 78 16 118/73 98 11/03/18 21:15 11/03/18 21:15 11/03/18 21:15 11/03/18 21:15 11/03/18 21:15 Vital Signs Reviewed: Yes Appearance: Positive: Well-Appearing Skin: Positive: Warm Head/Face: Positive: Normal Head/Face Inspection Eyes: Positive: Normal ENT: Positive: Normal ENT inspection Neck: Positive: Supple Respiratory/Lung Sounds: Positive: Clear to Auscultation Cardiovascular: Positive: Normal Abdomen Description: Positive: Nontender Musculoskeletal: Positive: Normal Neurological: Positive: Normal Psychiatric: Positive: Normal AVPU Assessment: Alert - Darcie Coma Scale Best Eye Response: 4 - Spontaneous Best Motor Response: 6 - Obeys Commands Best Verbal Response: 5 - Oriented Coma Scale Total: 15 Diagnostics - Vital Signs Vital Signs Temp Pulse Resp BP Pulse Ox 11/03/18 23:17 80 121/80 95 11/03/18 23:13 94 98 11/03/18 22:43 78 99 11/03/18 21:15 97.5 F 78 16 118/73 98 - Laboratory Lab Results: Lab Results 11/03/18 Range/Units 22:46 WBC 14.4 H (3.5-10.8) 10^3/uL RBC 4.27 (3.70-4.87) 10^6 /uL Hgb 12.6 (12.0-16.0) g/dL Hct 39 (35-47) % MCV 91 (80-97) fL MCH 30 (27-31) pg MCHC 33 (31-36) g/dL RDW 16 H (10.5-15) % Plt Count 269 (150-450) 10^3/uL MPV 7.0 L (7.4-10.4) fL Neut % (Auto) 47.2 % Lymph % (Auto) 42.6 % [place] % (Auto) 8.0 % Eos % (Auto) 1.3 % Baso % (Auto) 0.9 % Absolute Neuts (auto) 6.8 (1.5-7.7) 10^3/ul Absolute Lymphs (auto) 6.1 H (1.0-4.8) 10^3/ul Absolute Monos (auto) 1.2 H (0-0.8) 10^3/ul Absolute Eos (auto) 0.2 (0-0.6) 10^3/ul Absolute Basos (auto) 0.1 (0-0.2) 10^3/ul Absolute Nucleated RBC 0.0 10^3/ul Nucleated RBC % 0.2 Hem Pathologist Commnt Pending Result Diagrams: 11/03/18 22:46 11/03/18 22:46 Lab Statement: Any lab studies that have been ordered have been reviewed, and results considered in the medical decision making process. Course/Dx Course Of Treatment: Patient complains of redness and swelling to right medial thigh, and 3 episodes of syncope over the past week. Episodes of syncope unwitnessed. Patient states she just passes out randomly and then wakes up. Denies syncope with exertion, change in position, exiting shower. Patient states she hydrates normally. Denies fever, cough, sore throat, CP, SOB, N/V/D , abdominal pain, change in urine, change in BM. Medical history is IV drug abuse. Denies prior cardiac history or valvular disease. Physical exam:Small 2 cm x 2 cm apical abscess to medial right thigh which is very fluctuant. Lung sounds clear to auscultation bilaterally. RRR. Abdomen soft nontender. No peripheral edema. Patient alert and oriented, responds coherently and appropriately. Vital signs within normal limits. WBC 14.4. Labs otherwise unremarkable. EKG sinus rhythm. Patient refused I&D. Accepted by mouth antibiotic treatment. Blood cultures taken. Denies prior cardiac or valvular disease history. Patient advised to follow-up with primary care. Patient understands and approves plan - Diagnoses Provider Diagnoses: Abscess Discharge - Sign-Out/Discharge Documenting (check all that apply): Patient Departure Patient Received Moderate/Deep Sedation with Procedure: No - Discharge Plan Condition: Stable Disposition: HOME Prescriptions: Sulfamethox/Trimethoprim DS* [Bactrim DS 800/160 TAB*] 1 tab PO BID 10 Days #20 tab Patient Education Materials: Abscess (ED) Referrals: No Primary Care Phys,NOPCP [Primary Care Provider] - [facility] [Outside] Additional Instructions: Take antibiotics as directed. [facility] with [facility] for [facility]. Return to the ED for any new or worsening symptoms. - Billing Disposition and Condition Condition: STABLE Disposition: Home
[2018-11-03 23:34] LABS: HCG Pregnancy < 0.60 mIU/mL
[2018-11-03 23:41] LABS: Alcohol < 10 mg/dL (<10)
[2018-11-03 23:56] LABS: TSH (Thyroid Stimulating Horm) 4.18 mcIU/mL (0.34-5.60)
[2018-11-04 00:25] VITALS: BP 101/70
== END 2018-11-04 00:24 | disposition home or self-care (01) ==
LOC: ED 21:14
DX: L02.415 Cutaneous abscess of right lower limb (principal); I10 Essential (primary) hypertension; F41.9 Anxiety disorder, unspecified; F32.9 Major depressive disorder, single episode, unspecified; F17.210 Nicotine dependence, cigarettes, uncomplicated; Z88.3 Allergy status to other anti-infective agents
CPT/HCPCS: 36415; 80053; 80320; 84443; 84702; 85025; 85060; 86140; 87040; 93005; 99282; A9270-GY; G0480

== ENCOUNTER 2018-12-24 16:24 | Emergency (ER) | payer OTHER ==
[2018-12-24 17:13] LABS: ABS Basophils 0.1 10^3/ul (0-0.2); ABS Eosinophils 0.1 10^3/ul (0-0.6); ABS Lymphocytes 2.1 10^3/ul (1.0-4.8); ABS Monocytes 0.9 10^3/ul (0-0.8); ABS Neutrophils 10.1 10^3/ul (1.5-7.7); Eosinophil % 0.6 %; Hematocrit 40 % (35-47); Hemoglobin 13.3 g/dL (12.0-16.0); Lymphocyte % 15.7 %; Mean Corpuscular HGB Conc 33 g/dL (31-36); Mean Corpuscular Hemoglobin 30 pg (27-31); Mean Corpuscular Volume 90 fL (80-97); Mean Platelet Volume 6.7 fL (7.4-10.4); Platelet Count 311 10^3/uL (150-450); Red Blood Count 4.45 10^6 /uL (3.70-4.87); Red Cell Distribution Width 15 % (10-15); White Blood Count 13.2 10^3/uL (3.5-10.8)
[2018-12-24 17:22] LABS: Activated Partial Thrombo Time 34.3 seconds (26.0-38.0); INR 0.99 (0.82-1.09)
[2018-12-24 17:36] LABS: ALT 20 U/L (7-52); AST 29 U/L (13-39); Albumin 4.2 g/dL (3.2-5.2); Albumin/Globulin Ratio 1.4 (1-3); Alkaline Phosphatase 65 U/L (34-104); Anion Gap 8 mmol/L (2-11); BUN/Creatinine Ratio 19.5 (8-20); Blood Urea Nitrogen 15 mg/dL (6-24); CO2 Carbon Dioxide 26 mmol/L (22-32); Calcium 9.6 mg/dL (8.6-10.3); Chloride 104 mmol/L (101-111); Creatine Kinase 1053 U/L (10-223); EGFR African American 107.2 (>60); EGFR Non-African American 88.6 (>60); Globulin 3.1 g/dL (2-4); Glucose 83 mg/dL (70-100); Potassium 3.9 mmol/L (3.5-5.0); Sodium 138 mmol/L (135-145); Total Protein 7.3 g/dL (6.4-8.9)
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
[2018-12-24] MEDS ORDERED: Iohexol 300* (CONTRAST) 10 ML SDV IV ONE (17:39)
[2018-12-24 17:47] LABS: Acetaminophen < 15 mcg/mL; Alcohol < 10 mg/dL (<10); Salicylate < 2.50 mg/dL (<30)
[2018-12-24 18:09] LABS: HCG Pregnancy < 0.60 mIU/mL
[2018-12-24 18:11] LABS: Urine Appearance Cloudy; Urine Bilirubin Negative (Negative); Urine Blood Negative (Negative); Urine Color Amber; Urine Glucose Negative (Negative); Urine Ketones 1+ (Negative); Urine Nitrite Negative (Negative); Urine Protein Negative (Negative); Urine Specific Gravity 1.024 (1.010-1.030); Urine Urobilinogen Negative (Negative)
[2018-12-24 18:37] LABS: Urine Benzodiazepine Screen Presumptive Positive (None Detect); Urine Opiates Screen None Detected (None Detect)
[2018-12-24] MEDS: NS 0.9% 1000 ML** 2,000 ML IV ONE ×2 (18:39→20:16)
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
[2018-12-25 03:17] VITALS: BP 113/66
== END 2018-12-25 03:18 | disposition home or self-care (01) ==
LOC: ED 16:24
DX: F15.10 Other stimulant abuse, uncomplicated (principal); S40.012A Contusion of left shoulder, initial encounter; S70.312A Abrasion, left thigh, initial encounter; X58.XXXA Exposure to other specified factors, initial encounter; Y92.9 Unspecified place or not applicable; R10.30 Lower abdominal pain, unspecified; Z88.0 Allergy status to penicillin
CPT/HCPCS: 36415; 70450; 71260; 74177; 80053; 80307; 80320; 80329; 81003; 82550; 83605; 84484; 84702; 85025; 85610; 85730; 93005; 96360; 96361; 99284; G0480; Q9967

== ENCOUNTER 2020-11-20 04:06 | Inpatient (IN) ==
[2020-11-20] MEDS ORDERED: Lactated Ringers 1000 ml BAG IV.FLUID IV ONE (04:36)
[2020-11-20] MEDS ORDERED: Ondansetron 4 mg VIAL 2 MG/ML 2 ml VIAL IV ONE (04:38)
[2020-11-20] MEDS ORDERED: Famotidine IV 10 MG/ML 2 ml VIAL (20 mg) IV SLOW PU ONE (04:38)
[2020-11-20] MEDS ORDERED: Vancomycin 1,500 MG in NS 0.9% 250 ml 250 ML IVPB ONE (05:37)
[2020-11-20] MEDS ORDERED: Cefepime 1 GM in Dextrose 1 GM/50 ML BAG IV ONE (05:37)
[2020-11-20 06:16] LABS: ABS Lymphocytes 0.1 10^3/ul (1.0-4.8); ABS Neutrophils 5.6 10^3/ul (1.5-7.7); Hematocrit 42 % (35-47); Hemoglobin 14.7 g/dL (12.0-16.0); Lymphocyte % 2.6 %; Mean Corpuscular HGB Conc 35 g/dL (31-36); Mean Corpuscular Hemoglobin 31 pg (27-31); Mean Corpuscular Volume 90 fL (80-97); Mean Platelet Volume 8.6 fL (7.4-10.4); Nucleated Red Blood Cells % 0.1; Platelet Count 166 10^3/uL (150-450); Red Blood Count 4.67 10^6 /uL (3.70-4.87); Red Cell Distribution Width 16 % (10-15); White Blood Count 5.8 10^3/uL (3.5-10.8)
[2020-11-20 06:28] LABS: Urine Appearance Cloudy; Urine Bilirubin Negative (Negative); Urine Blood Negative (Negative); Urine Color Amber; Urine Glucose Negative (Negative); Urine Ketones Negative (Negative); Urine Nitrite Negative (Negative); Urine Protein 2+(100 mg/dL) (Negative); Urine Specific Gravity 1.018 (1.002-1.030); Urine Urobilinogen Positive (Negative)
[2020-11-20 06:30] LABS: Influenza A Molecular Negative (Negative); Influenza B Molecular Negative (Negative)
[2020-11-20 06:31] LABS: Activated Partial Thrombo Time 29.3 seconds (26.0-38.0); INR 1.46 (0.82-1.09)
[2020-11-20 06:37] LABS: ALT 65 U/L (7-52); Albumin 3.7 g/dL (3.2-5.2); Albumin/Globulin Ratio 1.1 (1-3); Alkaline Phosphatase 97 U/L (35-149); Blood Urea Nitrogen 16 mg/dL (6-24); C Reactive Protein 196.95 mg/L (<8.01); CO2 Carbon Dioxide 23 mmol/L (22-32); Calcium 8.7 mg/dL (8.6-10.3); Chloride 97 mmol/L (101-111); EGFR African American 104.2 (>60); EGFR Non-African American 86.1 (>60); Globulin 3.3 g/dL (2-4); Glucose 80 mg/dL (70-100); Lipase 32 U/L (11.0-82.0); Sodium 128 mmol/L (135-145)
[2020-11-20 06:40] LABS: HCG Pregnancy < 0.60 mIU/mL
[2020-11-20 06:42] LABS: Urine Bacteria Absent (Absent); Urine Red Blood Cell Trace(0-2/hpf) (Absent); Urine Squamous Epithelial Cell Present (Absent); Urine White Blood Cell 1+(6-10/hpf) (Absent)
[2020-11-20 06:46] LABS: Alcohol, S < 10 mg/dL (<10)
[2020-11-20 06:47] LABS: Urine Benzodiazepine Screen None Detected (None Detect); Urine Cannabinoids Screen Presumptive Positive (None Detect); Urine Opiates Screen None Detected (None Detect)
[2020-11-20 07:20] LABS: HIV 4th Generation Nonreactive (Nonreactive)
[2020-11-20 07:39] LABS: Anion Gap 8 mmol/L (2-11)
[2020-11-20] MEDS ORDERED: Magnesium Hydroxide LIQ 30 ML UDC PO PRN (07:52)
[2020-11-20] MEDS ORDERED: Ondansetron 4 mg VIAL 2 MG/ML 2 ml VIAL IV PRN (07:52)
[2020-11-20] MEDS ORDERED: Vancomycin per Pharmacy 1 EA NOTE FOLLOW UP SCH (08:00)
[2020-11-20 08:37] LABS: Erythrocyte Sed Rate 6 mm/Hr (0-19)
[2020-11-20] MEDS ORDERED: NS 0.9% 250 ml 250 ML ONE (10:53)
[2020-11-20] MEDS: Enoxaparin 40 MG/0.4 ML SYR SUBCUT SCH (10:56)
[2020-11-20] MEDS: NS 0.9% 1000 ml BAG 1,000 ML IV SCH ×2 (11:53→12:00)
[2020-11-20] MEDS ORDERED: Nicotine GUM 4MG FRUIT FLAVOR PO PRN (15:04)
[2020-11-20] MEDS: Vancomycin 750 MG in NS 0.9% 250 ML IVPB SCH ×2 (15:32→23:45)
[2020-11-20] MEDS: Cefepime 2 GM in NS 0.9% 50 ML 50 ML IVPB SCH (17:36)
[2020-11-20] MEDS ORDERED: Cefepime 2 GM in Dextrose 2 GM/50 ML BAG IV SCH (18:00)
[2020-11-21 05:08] LABS: Hepatitis B Surface Antigen Nonreactive (Nonreactive)
[2020-11-21 05:13] LABS: Hepatitis A Ab IgM Negative (Negative); Hepatitis B Core IgM Nonreactive (Nonreactive)
[2020-11-21 05:29] LABS: Hepatitis C Antibody Reactive (Negative)
[2020-11-21] MEDS: Cefepime 2 GM in NS 0.9% 50 ML 50 ML IVPB SCH (06:07)
[2020-11-21] MEDS ORDERED: Vancomycin Trough Check NOTE FOLLOW UP ONE (07:30)
[2020-11-21] MEDS ORDERED: Lactated Ringers 1000 ml BAG 1,000 ML IV SCH (09:00)
[2020-11-21] MEDS: Vancomycin 750 MG in NS 0.9% 250 ML IVPB SCH (09:09)
[2020-11-21] MEDS: Enoxaparin 40 MG/0.4 ML SYR SUBCUT SCH (09:10)
[2020-11-21 14:08] VITALS: BP 148/76
== END 2020-11-21 09:55 | disposition left against medical advice (07) | DRG 720 ==
LOC: ED 04:06 → MED 07:53
PROVIDERS: ADMIT Hospitalist; ATTEND Hospitalist

== ENCOUNTER 2023-07-27 08:29 | Inpatient (IN) ==
[2023-07-27] MEDS: Lactated Ringers 1000 ml BAG 1,000 ML IV ONE (08:36)
[2023-07-27] MEDS ORDERED: Lidocaine 1% VIAL 10 MG/ML 30 ML VIAL INJ PRN (09:51)
[2023-07-27 09:55] LABS: ABS Basophils 0.1 10^3/uL (0.0-0.1); ABS Eosinophils 0.1 10^3/uL (0.0-0.5); ABS Lymphocytes 2.6 10^3/uL (1.0-4.8); ABS Monocytes 0.7 10^3/uL (0.0-0.9); ABS Neutrophils 7.1 10^3/uL (1.5-7.6); Eosinophil % 0.9 %; Hematocrit 35.9 % (35-45); Hemoglobin 11.9 g/dL (11.5-14.3); Lymphocyte % 24.4 %; Mean Corpuscular Hgb Conc 33.1 g/dL (31-36); Mean Corpuscular Volume 90.6 fL (80-97); Platelet Count 285 10^3/uL (150-450); Red Blood Count 3.96 10^6/uL (3.63-4.92); Red Cell Distribution Width 14.8 % (12-17); White Blood Count 10.5 10^3/uL (3.8-11.8)
[2023-07-27] MEDS ORDERED: Morphine PF AMP (0.5MG/ML) 5 MG/10 ML AMP ONE (10:09)
[2023-07-27] MEDS ORDERED: Oxytocin 10 UNITS/ML 1 ML VIAL ONE (10:10)
[2023-07-27] MEDS ORDERED: Phenylephrine IV 10 MG/ML 1 ml VIAL ONE (10:10)
[2023-07-27] MEDS ORDERED: Ondansetron 4 mg VIAL 2 MG/ML 2 ml VIAL ONE (10:10)
[2023-07-27] MEDS ORDERED: Bupivacaine-MPF SPINAL 7.5 MG/ML - 2ML AMP ONE (10:11)
[2023-07-27] MEDS: Lactated Ringers 1000 ml BAG 1,000 ML IV SCH (10:25)
[2023-07-27] MEDS: Buffered Lidocaine 1% SYRIN 1 ml INTRADERM ONE ×2 (10:26)
[2023-07-27] MEDS: Ondansetron 4 mg VIAL 2 MG/ML 2 ml VIAL IV PRN (10:27)
[2023-07-27] MEDS: ceFOXitin 2 GM IVPREMIX 2 GM/50 ML BAG IVPB ONE (10:27)
[2023-07-27 10:36] LABS: ALT 22 U/L (7-52); Albumin 3.1 g/dL (3.2-5.2); Albumin/Globulin Ratio 0.9 (1-3); Alkaline Phosphatase 286 U/L (35-149); Anion Gap 10 mmol/L (2-16); Blood Urea Nitrogen 10 mg/dL (6-24); CO2 Carbon Dioxide 22 mmol/L (22-32); Calcium 8.8 mg/dL (8.6-10.3); Chloride 102 mmol/L (101-111); Creatinine, Serum 0.47 mg/dL (0.51-0.95); Globulin 3.4 g/dL (2-4); Glucose 87 mg/dL (70-100); Sodium 134 mmol/L (135-145); Total Bilirubin 0.3 mg/dL (0.2-1.0); Total Protein 6.5 g/dL (6.4-8.9); Uric Acid 4.7 mg/dL (2.3-6.6); eGFR CKD-EPI 128.8 (>60)
[2023-07-27 10:47] LABS: Rubella Screen IgG Immune (Immune)
[2023-07-27] MEDS ORDERED: Naloxone 0.4 mg VIAL 0.4 mg/ml 1 ml VIAL IV PUSH PRN (10:56)
[2023-07-27] MEDS ORDERED: Metoclopramide 5 MG/ML VIAL (10 mg) IV PRN (10:56)
[2023-07-27] MEDS ORDERED: KETAMINE HCL 10 MG/ML 20 ml VIAL (200 MG) ONE (11:16)
[2023-07-27] MEDS ORDERED: Propofol 10 MG/ML 20 ML BTL ONE ×2 (11:21→11:25)
[2023-07-27 11:42] LABS: Urine Appearance Clear; Urine Bilirubin Negative (Negative); Urine Blood Negative (Negative); Urine Color Colorless; Urine Glucose Negative (Negative); Urine Ketones Negative (Negative); Urine Nitrite Negative (Negative); Urine Protein Negative (Negative); Urine Specific Gravity 1.006 (1.002-1.030); Urine Urobilinogen Negative (Negative); Urine pH 7.5 (5.0-8.0)
[2023-07-27 11:46] LABS: Urine Creatinine Concentration 14.91 mg/dL (20.00-320.00); Urine TP Concentration < 5 mg/dL; Urine TP Creat Ratio 0.33 mg/mg
[2023-07-27 11:47] LABS: Hepatitis B Surface Antigen Nonreactive (Nonreactive)
[2023-07-27 11:48] LABS: Urine Benzodiazepine Screen None Detected (None Detect); Urine Cannabinoids Screen None Detected (None Detect); Urine Opiates Screen None Detected (None Detect)
[2023-07-27 11:57] LABS: HIV 4th Generation Nonreactive (Nonreactive)
[2023-07-27] MEDS ORDERED: Midazolam 5 mg/5 ml VIAL 1 mg/ml 5 ml VIAL (5 mg) ONE (12:01)
[2023-07-27 12:35] LABS: Hepatitis C Antibody Reactive (Negative)
[2023-07-27] MEDS: Acetaminophen IV 1 GM/100ML 1,000 MG/100 ML BAG IV PRN (12:43)
[2023-07-27] MEDS ORDERED: Glycerin ADULT 2.4 gm SUPP PR PRN (12:51)
[2023-07-27] MEDS ORDERED: Dibucaine 1% OINT 28.35 GM TUBE PR PRN (12:51)
[2023-07-27] MEDS: Sodium Citrate/Citric Acid LIQ 15 ML UDC ONE (12:51)
[2023-07-27] MEDS ORDERED: Witch Hazel PAD JAR TOPICAL PRN (12:51)
[2023-07-27] MEDS ORDERED: Lactated Ringers 1000 ml BAG 1,000 ML IV SCH (13:00)
[2023-07-27] MEDS: Methadone ORALSYR CONC LIQ 10 MG/ML PO SCH (13:22)
[2023-07-27] MEDS: Oxytocin in LR 20,000 MILLI.UNIT/1,000 ML BAG IV SCH (13:27)
[2023-07-27] MEDS: Nicotine GUM 4MG FRUIT FLAVOR PO PRN (14:00)
[2023-07-27] MEDS ORDERED: ROPIVACAINE 5 MG/ML 30 ML BTL (0.5%) ONE (16:17)
[2023-07-27] MEDS ORDERED: Ropivacaine (OR use only) 2 MG/ML 10 ML ONE (16:17)
[2023-07-28 06:42] LABS: ABS Basophils 0.2 10^3/uL (0.0-0.1); ABS Eosinophils 0.1 10^3/uL (0.0-0.5); ABS Lymphocytes 3.3 10^3/uL (1.0-4.8); ABS Monocytes 0.9 10^3/uL (0.0-0.9); ABS Neutrophils 12.8 10^3/uL (1.5-7.6); ABS Nucleated RBC 0.01 10^3/ul; Eosinophil % 0.5 %; Hematocrit 30.7 % (35-45); Hemoglobin 10.3 g/dL (11.5-14.3); Mean Corpuscular Hemoglobin 30.6 pg (27-33); Mean Corpuscular Hgb Conc 33.7 g/dL (31-36); Mean Corpuscular Volume 90.7 fL (80-97); Mean Platelet Volume 8.4 fL (7.5-11.2); Nucleated Red Blood Cells % 0.1 %/100WBC (0.0-0.8); Platelet Count 288 10^3/uL (150-450); Red Blood Count 3.38 10^6/uL (3.63-4.92); Red Cell Distribution Width 14.8 % (12-17); White Blood Count 17.4 10^3/uL (3.8-11.8)
[2023-07-28] MEDS: Nicotine Lozenge mini 2 MG LOZNG.MINI MT PRN (10:52)
[2023-07-29] MEDS: Methadone ORALSYR CONC LIQ 10 MG/ML PO SCH (08:56)
[2023-07-29] MEDS: Nicotine GUM 2MG FRUIT FLAVOR PO PRN (13:09)
[2023-07-30 07:40] VITALS: BP 130/93
== END 2023-07-30 13:13 | disposition home or self-care (01) | DRG 540 ==
LOC: MCHOBOUT 08:29 → MCHOB 09:44
PROVIDERS: ADMIT Obstetrics & Gynecology; ATTEND Obstetrics & Gynecology